=== PATIENT | female | born 1940 | race Caucasian/White ===

== ENCOUNTER 2021-09-05 16:56 | Inpatient (IN) | payer MEDICARE ==
[~2021-09-05] VITALS: Ht 170.2 cm; Wt 56.2 kg
[2021-09-05 17:53] LABS: BASOPHILS # (AUTO) 0.1 (0.0-0.1); BASOPHILS % 0.6 % (0.0-1.0); EOSINOPHILS # (AUTO) 0.1 (0.0-0.4); EOSINOPHILS % 0.9 % (0.0-6.0); HEMATOCRIT 41.8 % (34.2-44.1); HEMOGLOBIN 13.2 g/dL (12.0-16.0); LYMPHOCYTES # (AUTO) 2.1 (1.0-3.2); LYMPHOCYTES % 21.4 % (18.0-39.1); MEAN CORPUSCULAR HEMOGLOBIN 32.6 pg (28-32); MEAN CORPUSCULAR HGB CONC 31.6 g/dL (31-35); MEAN CORPUSCULAR VOLUME 103.2 fL (81-99); MONOCYTES # (AUTO) 0.9 (0.2-0.8); MONOCYTES % 9.7 % (4.4-11.3); NEUTROPHILS # (AUTO) 6.5 (2.1-6.9); PLATELET COUNT 239 x10e3/uL (140-360); RED BLOOD COUNT 4.05 x10e6/uL (3.6-5.1); RED CELL DISTRIBUTION WIDTH 13.1 % (11.7-14.4)
[2021-09-05 18:10] LABS: ALBUMIN 3.3 g/dL (3.5-5.0); ALBUMIN/GLOBULIN RATIO 0.9 (0.8-2.0); ANION GAP 16.1 mmol/L (8-16); CALCIUM 9.2 mg/dL (8.4-10.2); CREATININE, SERUM 0.72 mg/dL (0.57-1.11); POTASSIUM 4.1 mmol/L (3.5-5.1)
[2021-09-05 18:17] LABS: CREATINE KINASE MB 1.9 ng/mL (0-5.0)
[2021-09-05] MEDS ORDERED: DEXAMETHASONE SOD PHOS 10 MG/1 ML VIAL IV ONE (19:30)
[2021-09-05] MEDS ORDERED: ALBUTEROL SULFATE HFA 8GM INHALATION AEROSOL INH PRN (19:30)
[2021-09-05 19:39] LABS: CLARITY,URINE SL CLOUDY (CLEAR); COLOR,URINE YELLOW (YELLOW)
[2021-09-05 19:41] LABS: KETONES,URINE 1+ (NEGATIVE); LEUKOCYTE ESTERASE ,URINE SMALL (NEGATIVE); NITRITE,URINE NEGATIVE (NEGATIVE); PROTEIN,URINE DIPSTICK 1+ (NEGATIVE)
[2021-09-05] MEDS ORDERED: ACETAMINOPHEN 325 MG TAB PO PRN (19:45)
[2021-09-05 19:54] LABS: BACTERIA,URINE FEW /HPF; EPITHELIAL CELLS,URINE FEW /LPF
[2021-09-05] MEDS: CEFTRIAXONE 2 GM in SODIUM CHLORIDE 0.9% 100 ML IV SCH (20:08)
[2021-09-05 22:45] VITALS: BP 146/91
[2021-09-05 22:50] VITALS: BP 146/91
[2021-09-05 22:57] VITALS: BP 146/91
[2021-09-05 22:58] VITALS: BP 146/91
[2021-09-06] VITALS (7 sets, daily range): BP systolic 104–137; BP diastolic 57–81
[2021-09-06] MEDS: IPRATROPIUM BROMIDE INHALER 12.9 GM INH INH SCH ×5 (01:00→19:42)
[2021-09-06 05:58] LABS: BASOPHILS % 0.6 % (0.0-1.0); HEMATOCRIT 40.6 % (34.2-44.1); MONOCYTES # (AUTO) 0.1 (0.2-0.8); MONOCYTES % 1.5 % (4.4-11.3); NEUTROPHILS # (AUTO) 4.2 (2.1-6.9); NEUTROPHILS % 79.5 % (38.7-80.0); PLATELET COUNT 224 x10e3/uL (140-360); RED BLOOD COUNT 3.94 x10e6/uL (3.6-5.1); RED CELL DISTRIBUTION WIDTH 12.9 % (11.7-14.4)
[2021-09-06 06:43] LABS: CREATINE KINASE MB 2.3 ng/mL (0-5.0)
[2021-09-06 07:04] LABS: ALBUMIN/GLOBULIN RATIO 0.9 (0.8-2.0); CALCIUM 8.9 mg/dL (8.4-10.2); CREATININE, SERUM 0.71 mg/dL (0.57-1.11)
[2021-09-06] MEDS ORDERED: LORAZEPAM INJ 2 MG/ML VIAL IV ONE (07:45)
[2021-09-06] MEDS ORDERED: POTASSIUM CHLORIDE 10MEQ EA PO ONE (08:00)
[2021-09-06] MEDS ORDERED: FUROSEMIDE INJ 10 MG/ML 2 ML VIAL IV ONE (08:00)
[2021-09-06] MEDS ORDERED: DEXAMETHASONE SOD PHOS 10 MG/1 ML VIAL IV SCH (09:00)
[2021-09-06] MEDS ORDERED: ENOXAPARIN INJ 80 MG/0.8 ML SYR SC SCH (09:00)
[2021-09-06] MEDS: ASCORBIC ACID 500 MG TAB PO SCH ×2 (09:21→15:40)
[2021-09-06] MEDS: DEXAMETHASONE SOD PHOS 10 MG/1 ML VIAL IV SCH (09:21)
[2021-09-06] MEDS: ENOXAPARIN SOD INJ 60 MG/0.6 ML SYR SC SCH ×2 (09:21→20:50)
[2021-09-06] MEDS: ZINC SULFATE 50 MG CAP PO SCH (09:21)
[2021-09-06] MEDS: ACETAMINOPHEN/CODEINE 300MG - 30MG TAB PO PRN (10:28)
[2021-09-06] MEDS ORDERED: SODIUM CHLORIDE 0.9% 50ML 50 ML ONE (12:31)
[2021-09-06] MEDS ORDERED: IOPAMIDOL 370 MG/ML 200 ML INFUS..BTL INJ ONE (12:33)
[2021-09-06] MEDS ORDERED: REMDESIVIR 100MG 200 MG in SODIUM CHLORIDE 0.9% 100 ML IV ONE (14:00)
[2021-09-06 14:03] LABS: CREATINE KINASE MB 2.8 ng/mL (0-5.0)
[2021-09-06] MEDS: CEFTRIAXONE 2 GM in SODIUM CHLORIDE 0.9% 100 ML IV SCH (17:40)
[2021-09-06] MEDS ORDERED: SODIUM CHLORIDE 0.9% 500ML 0 ML ONE (19:50)
[2021-09-07] VITALS (9 sets, daily range): BP systolic 98–117; BP diastolic 61–91
[2021-09-07] MEDS ORDERED: SODIUM CHLORIDE 0.9% 50ML 0 ML ONE (04:16)
[2021-09-07] MEDS ORDERED: IOPAMIDOL 370 MG/ML 200 ML INFUS..BTL INJ ONE (04:16)
[2021-09-07 05:00] LABS: BASOPHILS % 0.4 % (0.0-1.0); EOSINOPHILS % 0.1 % (0.0-6.0); HEMATOCRIT 39.6 % (34.2-44.1); HEMOGLOBIN 12.7 g/dL (12.0-16.0); LYMPHOCYTES % 20.8 % (18.0-39.1); MEAN CORPUSCULAR HEMOGLOBIN 32.9 pg (28-32); MEAN CORPUSCULAR HGB CONC 32.1 g/dL (31-35); MEAN CORPUSCULAR VOLUME 102.6 fL (81-99); MONOCYTES # (AUTO) 0.7 (0.2-0.8); MONOCYTES % 7.7 % (4.4-11.3); NEUTROPHILS # (AUTO) 6.7 (2.1-6.9); NEUTROPHILS % 70.6 % (38.7-80.0); PLATELET COUNT 242 x10e3/uL (140-360); RED BLOOD COUNT 3.86 x10e6/uL (3.6-5.1); RED CELL DISTRIBUTION WIDTH 13.1 % (11.7-14.4)
[2021-09-07 05:30] LABS: ALBUMIN 2.9 g/dL (3.5-5.0); ANION GAP 13.4 mmol/L (8-16); CALCIUM 8.7 mg/dL (8.4-10.2); CREATININE, SERUM 0.77 mg/dL (0.57-1.11); POTASSIUM 4.4 mmol/L (3.5-5.1)
[2021-09-07 05:31] LABS: ALBUMIN/GLOBULIN RATIO 0.9 (0.8-2.0)
[2021-09-07] MEDS: IPRATROPIUM BROMIDE INHALER 12.9 GM INH INH SCH ×3 (08:10→20:42)
[2021-09-07] MEDS: DEXAMETHASONE SOD PHOS 10 MG/1 ML VIAL IV SCH (08:10)
[2021-09-07] MEDS: ENOXAPARIN SOD INJ 60 MG/0.6 ML SYR SC SCH ×2 (08:10→20:42)
[2021-09-07] MEDS: ZINC SULFATE 50 MG CAP PO SCH (08:10)
[2021-09-07] MEDS: ASCORBIC ACID 500 MG TAB PO SCH ×2 (08:10→18:40)
[2021-09-07] MEDS ORDERED: ALBUTEROL/IPRATROPIUM 3 ML NEB NEB PRN (14:30)
[2021-09-07] MEDS: REMDESIVIR 100MG 100 MG in SODIUM CHLORIDE 0.9% 100 ML IV SCH (14:47)
[2021-09-07] MEDS ORDERED: METHYLPREDNISOLONE SOD SUCC 125 MG/2ML VIAL IV ONE (15:00)
[2021-09-07] MEDS: ALBUTEROL SULFATE HFA 8GM INHALATION AEROSOL INH SCH ×2 (18:40→20:42)
[2021-09-07] MEDS: SALMETEROL/FLUTICASONE 250/50 INH SCH (20:41)
[2021-09-07] MEDS: CEFTRIAXONE 2 GM in SODIUM CHLORIDE 0.9% 100 ML IV SCH (20:42)
[2021-09-07] MEDS ORDERED: FAMOTIDINE 20 MG TAB PO ONE (22:15)
[2021-09-07] MEDS: ZOLPIDEM TARTRATE 10 MG TAB PO PRN (22:30)
[2021-09-08] VITALS (8 sets, daily range): BP systolic 92–125; BP diastolic 67–78
[2021-09-08] MEDS: IPRATROPIUM BROMIDE INHALER 12.9 GM INH INH SCH ×4 (01:30→20:01)
[2021-09-08 05:48] LABS: BASOPHILS % 0.1 % (0.0-1.0); HEMATOCRIT 38.9 % (34.2-44.1); HEMOGLOBIN 12.3 g/dL (12.0-16.0); LYMPHOCYTES # (AUTO) 1.3 (1.0-3.2); LYMPHOCYTES % 18.3 % (18.0-39.1); MEAN CORPUSCULAR HEMOGLOBIN 32.1 pg (28-32); MEAN CORPUSCULAR HGB CONC 31.6 g/dL (31-35); MEAN CORPUSCULAR VOLUME 101.6 fL (81-99); MONOCYTES # (AUTO) 0.4 (0.2-0.8); MONOCYTES % 5.5 % (4.4-11.3); NEUTROPHILS # (AUTO) 5.2 (2.1-6.9); NEUTROPHILS % 75.8 % (38.7-80.0); PLATELET COUNT 240 x10e3/uL (140-360); RED BLOOD COUNT 3.83 x10e6/uL (3.6-5.1); RED CELL DISTRIBUTION WIDTH 12.7 % (11.7-14.4)
[2021-09-08] MEDS: ALBUTEROL SULFATE HFA 8GM INHALATION AEROSOL INH SCH ×5 (05:50→20:07)
[2021-09-08] MEDS: SALMETEROL/FLUTICASONE 250/50 INH SCH ×2 (06:25→20:01)
[2021-09-08 06:27] LABS: ANION GAP 13.8 mmol/L (8-16); CALCIUM 8.5 mg/dL (8.4-10.2); CREATININE, SERUM 0.68 mg/dL (0.57-1.11); POTASSIUM 4.8 mmol/L (3.5-5.1)
[2021-09-08] MEDS: DEXAMETHASONE SOD PHOS 10 MG/1 ML VIAL IV SCH (08:11)
[2021-09-08] MEDS: ASCORBIC ACID 500 MG TAB PO SCH ×2 (08:11→16:49)
[2021-09-08] MEDS: ZINC SULFATE 50 MG CAP PO SCH (08:11)
[2021-09-08] MEDS: ENOXAPARIN SOD INJ 60 MG/0.6 ML SYR SC SCH ×2 (08:11→20:02)
[2021-09-08] MEDS: ACETAMINOPHEN/CODEINE 300MG - 30MG TAB PO PRN ×2 (12:29→18:48)
[2021-09-08] MEDS: REMDESIVIR 100MG 100 MG in SODIUM CHLORIDE 0.9% 100 ML IV SCH (14:39)
[2021-09-08] MEDS: CEFTRIAXONE 2 GM in SODIUM CHLORIDE 0.9% 100 ML IV SCH (20:01)
[2021-09-08] MEDS: ZOLPIDEM TARTRATE 10 MG TAB PO PRN (20:50)
[2021-09-09] VITALS: BP 109/70
[2021-09-09] MEDS: IPRATROPIUM BROMIDE INHALER 12.9 GM INH INH SCH ×2 (01:35→07:22)
[2021-09-09 04:00] VITALS: BP 117/71
[2021-09-09 05:01] LABS: BASOPHILS % 0.1 % (0.0-1.0); HEMATOCRIT 38.2 % (34.2-44.1); HEMOGLOBIN 12.1 g/dL (12.0-16.0); LYMPHOCYTES # (AUTO) 1.5 (1.0-3.2); LYMPHOCYTES % 19.9 % (18.0-39.1); MEAN CORPUSCULAR HGB CONC 31.7 g/dL (31-35); MEAN CORPUSCULAR VOLUME 101.1 fL (81-99); MONOCYTES # (AUTO) 0.6 (0.2-0.8); MONOCYTES % 8.3 % (4.4-11.3); NEUTROPHILS # (AUTO) 5.5 (2.1-6.9); NEUTROPHILS % 71.3 % (38.7-80.0); PLATELET COUNT 222 x10e3/uL (140-360); RED BLOOD COUNT 3.78 x10e6/uL (3.6-5.1); RED CELL DISTRIBUTION WIDTH 12.8 % (11.7-14.4)
[2021-09-09 05:23] LABS: ALBUMIN/GLOBULIN RATIO 1.1 (0.8-2.0); ANION GAP 12.2 mmol/L (8-16); CALCIUM 8.6 mg/dL (8.4-10.2); CREATININE, SERUM 0.69 mg/dL (0.57-1.11); POTASSIUM 4.2 mmol/L (3.5-5.1)
[2021-09-09] MEDS: ALBUTEROL SULFATE HFA 8GM INHALATION AEROSOL INH SCH ×2 (06:00→08:13)
[2021-09-09] MEDS: SALMETEROL/FLUTICASONE 250/50 INH SCH (07:22)
[2021-09-09 08:04] VITALS: BP 117/71
[2021-09-09] MEDS: ENOXAPARIN SOD INJ 60 MG/0.6 ML SYR SC SCH (08:06)
[2021-09-09] MEDS: ASCORBIC ACID 500 MG TAB PO SCH (08:06)
[2021-09-09] MEDS: ZINC SULFATE 50 MG CAP PO SCH (08:06)
[2021-09-09] MEDS: DEXAMETHASONE SOD PHOS 10 MG/1 ML VIAL IV SCH (08:06)
[2021-09-09] MEDS ORDERED: DECADRON4 M1 PO ×2 (10:17→11:10)
[2021-09-09] MEDS ORDERED: VENTOLIN HFA18 GM INH (10:17)
[2021-09-09] MEDS ORDERED: FOSFOMYCIN TROME3 GM PO (10:39)
[2021-09-09] MEDS ORDERED: PEPCID20 MG PO (10:40)
[2021-09-09] MEDS ORDERED: AMBIEN10 MG PO (10:43)
[2021-09-09] MEDS ORDERED: ADVAIR 250-501 EACH INH ×2 (10:43→10:49)
[2021-09-09] MEDS ORDERED: ASPIRIN81 MG PO (10:54)
[2021-09-09 11:42] VITALS: BP 123/52
== END 2021-09-09 12:30 | disposition home health service (06) | DRG 177 ==
LOC: ER 17:37 → ERHOLD 19:29 → IMCU 21:26
PROVIDERS: ADMIT Internal Medicine; ATTEND Internal Medicine
PROC: XW033E5 Introduction of Remdesivir Anti-infective into Peripheral Vein, Percutaneous Approach, New Technology Group 5 (ICD-10-PCS; principal; 2021-09-05)
PROC: 8E0ZXY6 Isolation (ICD-10-PCS; 2021-09-05)
DX: U07.1 COVID-19 (principal); J12.82 Pneumonia due to coronavirus disease 2019; J96.21 Acute and chronic respiratory failure with hypoxia; J44.1 Chronic obstructive pulmonary disease with (acute) exacerbation; N39.0 Urinary tract infection, site not specified; E88.09 Other disorders of plasma-protein metabolism, not elsewhere classified; Z74.09 Other reduced mobility; G89.29 Other chronic pain; B96.89 Other specified bacterial agents as the cause of diseases classified elsewhere
CPT/HCPCS: 36415; 71045; 71260; 80048; 80053; 81001; 82550; 82553; 83880; 84484; 85025; 85379; 87086; 87186; 93005; 93306; 93970; 94664; 96365; 99284; J0456; J0696; J1100; J1650; J1940; J2060; J2930; J7040; J7050; Q9967; U0002

== ENCOUNTER → 2022-04-01 | Outpatient (CLI) | payer MEDICARE ==
[~2022-04-01] MED LIST: ADVAIR 250-501 EACH INH; AMBIEN10 MG PO; ASPIRIN81 MG PO; DECADRON4 M1 PO; FOSFOMYCIN TROME3 GM PO; PEPCID20 MG PO; VENTOLIN HFA18 GM INH
== END ==
LOC: RAD 11:54
PROVIDERS: ATTEND Internal Medicine Critical Care Medicine
DX: J44.9 Chronic obstructive pulmonary disease, unspecified (principal)
CPT/HCPCS: 71046